=== PATIENT | male | born 1980 | race Caucasian/White ===

== ENCOUNTER 2017-09-29 09:02 | Emergency (ER) | payer OTHER ==
[2017-09-29] MEDS ORDERED: NORMAL SALINE 1000 ML 1,000 ML IV ONE (09:28)
--- NOTE | 2017-09-29 09:29 | ER Document Report ---
ED Medical Screen (RME) - General Chief Complaint: High Blood Sugar Stated Complaint: BLOOD SUGAR CONCERNS Time Seen by Provider: 09/29/17 09:27 Mode of Arrival: Ambulatory Information source: Patient TRAVEL OUTSIDE OF THE [place] IN LAST 30 DAYS: No - HPI Patient complains to provider of: elevated BS Onset: This morning - pt sent from the [place] for evaluation of elevated BS. - Related Data Allergies/Adverse Reactions: No Known Allergies Allergy (Verified 09/29/17 09:04) Past Medical History - Social History Chew tobacco use (# tins/day): No Frequency of alcohol use: None Drug Abuse: None - Past Medical History Cardiac Medical History: Reports: Hx Hypertension Neurological Medical History: Reports: Hx Migraine Endocrine Medical History: Reports: Hx Diabetes Mellitus Type 2 Renal/ Medical History: Denies: Hx Peritoneal Dialysis GI Medical History: Reports: Hx Gastroesophageal Reflux Disease Musculoskeltal Medical History: Reports Hx Musculoskeletal Trauma Psychiatric Medical History: Reports: Hx Post Traumatic Stress Disorder Traumatic Medical History: Reports: Hx Fractures, Hx Traumatic Brain Injury Past Surgical History: Reports: Hx Myringotomy, Hx Nose Surgery - Immunizations Immunizations up to date: Yes Hx Diphtheria, Pertussis, Tetanus Vaccination: Yes Physical Exam - Vital signs Vitals: Temp Pulse Resp BP Pulse Ox 98.4 F 98 18 125/84 96 09/29/17 09:19 09/29/17 09:19 09/29/17 09:19 09/29/17 09:19 09/29/17 09:19 Course - Vital Signs Vital signs: Temp Pulse Resp BP Pulse Ox 98.4 F 98 18 125/84 96 09/29/17 09:19 09/29/17 09:19 09/29/17 09:19 09/29/17 09:19 09/29/17 09:19
[2017-09-29 09:54] LABS: APPEARANCE,URINE CLEAR; BILIRUBIN,URINE NEGATIVE (NEGATIVE); COLOR,URINE YELLOW; GLUCOSE, URINE >=500 mg/dL (NEGATIVE); KETONES,URINE NEGATIVE (NEGATIVE); LEUKOCYTE ESTERASE,URINE NEGATIVE (NEGATIVE); NITRITE,URINE NEGATIVE (NEGATIVE); PROTEIN,URINE NEGATIVE (NEGATIVE); URINE SPECIFIC GRAVITY 1.032
[2017-09-29 09:56] LABS: ABSOLUTE BASOPHILS # (AUTO) 0.1 10^3/uL (0.0-0.2); ABSOLUTE EOSINOPHILS # (AUTO) 0.1 10^3/uL (0.0-0.6); ABSOLUTE LYMPHOCYTES (AUTO) 2.1 10^3/uL (0.5-4.7); ABSOLUTE MONOCYTES (AUTO) 0.5 10^3/uL (0.1-1.4); ABSOLUTE NEUT (AUTO) 3.7 10^3/uL (1.7-8.2); BASOPHILS % (AUTO) 0.8 % (0-2); EOSINOPHILS % (AUTO) 1.6 % (0-6); HEMATOCRIT 42.1 % (37.9-51.0); HEMOGLOBIN 15.2 g/dL (13.5-17.0); LYMPHOCYTES % (AUTO) 32.7 % (13-45); MEAN CORPUSCULAR HEMOGLOBIN 31.4 pg (27.0-33.4); MEAN CORPUSCULAR HGB CONC 36.2 g/dL (32.0-36.0); MEAN CORPUSCULAR VOLUME 87 fl (80-97); MONOCYTES % (AUTO) 7.8 % (3-13); PLATELET COUNT 250 10^3/uL (150-450); RED BLOOD COUNT 4.86 10^6/uL (4.35-5.55); SEGMENTED NEUTROPHILS % (AUTO) 57.1 % (42-78); TOTAL CELLS COUNTED % (AUTO) 100 %; WHITE BLOOD COUNT 6.5 10^3/uL (4.0-10.5)
[2017-09-29 10:19] LABS: ALANINE AMINOTRANSFERASE 82 U/L (21-72); ALBUMIN 4.8 g/dL (3.5-5.0); ALKALINE PHOSPHATASE 43 U/L (38-126); ANION GAP 11 (5-19); ASPARTATE AMINO TRANSFERASE 36 U/L (17-59); BILIRUBIN,DIRECT 0.5 mg/dL (0.0-0.4); BILIRUBIN,TOTAL 1.2 mg/dL (0.2-1.3); BLOOD UREA NITROGEN 18 mg/dL (7-20); CALCIUM 9.7 mg/dL (8.4-10.2); CARBON DIOXIDE 28 mmol/L (22-30); CHLORIDE 98 mmol/L (98-107); GLUCOSE 360 mg/dL (75-110); POTASSIUM 4.5 mmol/L (3.6-5.0); SODIUM 136.6 mmol/L (137-145); TOTAL PROTEIN 7.3 g/dL (6.3-8.2)
--- NOTE | 2017-09-29 12:01 | ER Document Report ---
ED General - General Chief Complaint: High Blood Sugar Stated Complaint: BLOOD SUGAR CONCERNS Time Seen by Provider: 09/29/17 09:27 Mode of Arrival: Ambulatory TRAVEL OUTSIDE OF THE [place] IN LAST 30 DAYS: No - HPI Patient complains to provider of: Elevated blood sugars Notes: Patient coming in elevated blood sugars. Patient also having nausea vomiting diarrhea and slight abdominal pain. Patient states normally his blood sugars are 250. States blood sugar this morning when he woke up with her 400. Went to the [facility] encouraged patient to come to the ER for further evaluation. Upon my evaluation patient resting comfortably no signs of any obvious distress. Patient states no changes in his medications. Patient states improvement of his abdominal pain states still slightly nauseous. Patient states multiple sick contacts throughout his family with similar symptoms. Denies any fevers chills. - Related Data Allergies/Adverse Reactions: No Known Allergies Allergy (Verified 09/29/17 09:04) Past Medical History - General Information source: Patient - Social History Smoking Status: Never Smoker Chew tobacco use (# tins/day): No Frequency of alcohol use: None Drug Abuse: None Family History: Arthritis, CAD, CVA, DM, Hyperlipidemia, Hypertension, Malignancy, Thyroid Disfunction Patient has suicidal ideation: No Patient has homicidal ideation: No - Past Medical History Cardiac Medical History: Reports: Hx Hypertension Neurological Medical History: Reports: Hx Migraine - TBI Endocrine Medical History: Reports: Hx Diabetes Mellitus Type 2 Renal/ Medical History: Denies: Hx Peritoneal Dialysis GI Medical History: Reports: Hx Gastroesophageal Reflux Disease Musculoskeltal Medical History: Reports Hx Musculoskeletal Trauma Psychiatric Medical History: Reports: Hx Post Traumatic Stress Disorder Traumatic Medical History: Reports: Hx Fractures, Hx Traumatic Brain Injury Past Surgical History: Reports: Hx Myringotomy, Hx Nose Surgery - Immunizations Immunizations up to date: Yes Hx Diphtheria, Pertussis, Tetanus Vaccination: Yes Review of Systems - Review of Systems Constitutional: Other - Elevated blood sugars nausea vomiting diarrhea EENT: No symptoms reported Cardiovascular: No symptoms reported Respiratory: No symptoms reported Gastrointestinal: No symptoms reported Genitourinary: No symptoms reported Male Genitourinary: No symptoms reported Musculoskeletal: No symptoms reported Skin: No symptoms reported Hematologic/Lymphatic: No symptoms reported Neurological/Psychological: No symptoms reported Physical Exam - Vital signs Vitals: Temp Pulse Resp BP Pulse Ox 98.4 F 98 18 125/84 96 09/29/17 09:19 09/29/17 09:19 09/29/17 09:19 09/29/17 09:19 09/29/17 09:19 Interpretation: Normal - General General appearance: Appears well, Alert - HEENT Head: Normocephalic, Atraumatic Eyes: Normal Pupils: PERRL - Respiratory Respiratory status: No respiratory distress Chest status: Nontender Breath sounds: Normal Chest palpation: Normal - Cardiovascular Rhythm: Regular Heart sounds: Normal auscultation Murmur: No - Abdominal Inspection: Normal Distension: No distension Bowel sounds: Normal Tenderness: Nontender Organomegaly: No organomegaly - Back Back: Normal, Nontender - Extremities General upper extremity: Normal inspection, Nontender, Normal color, Normal ROM , Normal temperature General lower extremity: Normal inspection, Nontender, Normal color, Normal ROM , Normal temperature, Normal weight bearing. No: Jaycee's sign - Neurological Neuro grossly intact: Yes Cognition: Normal Orientation: AAOx4 [place] Coma Scale Eye Opening: Spontaneous [place] Coma Scale Verbal: Oriented [place] Coma Scale Motor: Obeys Commands [place] Coma Scale Total: 15 Speech: Normal Motor strength normal: LUE, RUE, LLE, RLE Sensory: Normal - Psychological Associated symptoms: Normal affect, Normal mood - Skin Skin Temperature: Warm Skin Moisture: Dry Skin Color: Normal Course - Re-evaluation Re-evalutation: 09/29/17 15:53 Patient was given a liter fluid here A1c was at 7.9 did explain the patient this morning his sugars have been elevated and this time no clear etiology for his blood sugar greater than 400 at home however patient looks to be coming down with the local gastroenteritis that is going to the community. Patient will be given nausea medication patient will be discharged home patient agrees with this plan. - Vital Signs Vital signs: Temp Pulse Resp BP Pulse Ox 98.2 F 97 18 126/78 H 97 09/29/17 12:15 09/29/17 12:15 09/29/17 12:15 09/29/17 12:15 09/29/17 12:15 - Laboratory Result Diagrams: 09/29/17 09:45 09/29/17 09:45 Laboratory results interpreted by me: 09/29/17 09/29/17 09/29/17 09:35 09:40 09:45 MCHC 36.2 H Sodium Glucose POC Glucose 333 H Hemoglobin A1c % Direct Bilirubin ALT Urine Glucose (UA) >=500 H Urine Urobilinogen 4.0 H 09/29/17 09/29/17 09:45 09:45 MCHC Sodium 136.6 L Glucose 360 H POC Glucose Hemoglobin A1c % 7.9 H Direct Bilirubin 0.5 H ALT 82 H Urine Glucose (UA) Urine Urobilinogen Discharge - Discharge Clinical Impression: Elevated blood sugar Diarrhea Qualifiers: Diarrhea type: unspecified type Qualified Code(s): R19.7 - Diarrhea, unspecified Abdominal pain Qualifiers: Abdominal location: unspecified location Qualified Code(s): R10.9 - Unspecified abdominal pain Condition: Good Disposition: HOME, SELF-CARE Instructions: Abdominal Pain ([facility]), Diabetes ([facility]), Diarrhea, Nonspecific ([facility]) Additional Instructions: Take medication as prescribed. More likely have a viral gastroenteritis. Your hemoglobin A1c was elevated at 7.9. Please talked with your primary care physician for further evaluation of your diabetic control. Prescriptions: Dicyclomine HCl [Bentyl 20 mg Tablet] 20 mg PO QID #40 tablet Ondansetron [Zofran Odt] 4 mg PO Q6 PRN #30 tab.rapdis PRN Reason: For Nausea/Vomiting Promethazine HCl [Phenergan 25 mg Tablet] 25 mg PO Q6 #30 tablet Forms: Return to Work
[2017-09-29 12:17] VITALS: BP 126/78
== END 2017-09-29 12:17 | disposition home or self-care (01) ==
LOC: ER 09:02
DX: E11.65 Type 2 diabetes mellitus with hyperglycemia (principal); R19.7 Diarrhea, unspecified; R10.9 Unspecified abdominal pain; R11.2 Nausea with vomiting, unspecified
CPT/HCPCS: 99283; 96360; 36415; 82962; 83690; 85025; 80053; 81001; 83036; J7030

== ENCOUNTER 2018-03-22 07:34 | Emergency (ER) | payer OTHER ==
[2018-03-22 07:38] VITALS: BP 126/89
--- NOTE | 2018-03-22 08:01 | ER Document Report ---
ED General - General Chief Complaint: Ear Pain Stated Complaint: COUGH, THROAT/EYE PAIN Time Seen by Provider: 03/22/18 08:00 TRAVEL OUTSIDE OF THE [place] 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 Patient has not tried any qurr-oog-ijcknax medications. He typically takes Zyrtec has not been taking it for the last week. Non-smoker. Reports nonproductive cough. pain is 4/10, throbbing and constant. Denies fevers, chills, chest pain,palpitations , shortness of breath, dyspnea, nausea, vomiting, diarrhea, abdominal pain, hematuria,blurred vision, double vision, loss of vision, speech changes, LH, dizziness, syncope, headaches, wheezing, ST, URI, neck pain, weakness, bowel or bladder dysfunction, saddle anesthesia, numbness or tingling in bilateral upper or lower extremities equally, muscle paralysis, weakness in bilateral upper or lower extremities equally or rash. Denies IV drug use. - Related Data Allergies/Adverse Reactions: No Known Allergies Allergy (Verified 03/22/18 07:35) Past Medical History - General Information source: Patient - Social History Smoking Status: Never Smoker Family History: Arthritis, CAD, CVA, DM, Hyperlipidemia, Hypertension, Malignancy, Thyroid Disfunction - Past Medical History Cardiac Medical History: Reports: Hx Hypertension Neurological Medical History: Reports: Hx Migraine - TBI Endocrine Medical History: Reports: Hx Diabetes Mellitus Type 2 Renal/ Medical History: Denies: Hx Peritoneal Dialysis GI Medical History: Reports: Hx Gastroesophageal Reflux Disease Musculoskeletal Medical History: Reports Hx Musculoskeletal Trauma Psychiatric Medical History: Reports: Hx Post Traumatic Stress Disorder Traumatic Medical History: Reports: Hx Fractures, Hx Traumatic Brain Injury Past Surgical History: Reports: Hx Myringotomy, Hx Nose Surgery - Immunizations Immunizations up to date: Yes Hx Diphtheria, Pertussis, Tetanus Vaccination: Yes Review of Systems - Review of Systems Constitutional: No symptoms reported EENT: See HPI Cardiovascular: No symptoms reported Respiratory: No symptoms reported Gastrointestinal: No symptoms reported Genitourinary: No symptoms reported Male Genitourinary: No symptoms reported Musculoskeletal: No symptoms reported Skin: No symptoms reported Hematologic/Lymphatic: No symptoms reported Neurological/Psychological: No symptoms reported Physical Exam - Vital signs Vitals: Temp Pulse Resp BP Pulse Ox 98.2 F 90 16 126/89 H 97 03/22/18 07:37 03/22/18 07:37 03/22/18 07:37 03/22/18 07:37 03/22/18 07:37 - Notes Notes: PHYSICAL EXAMINATION: GENERAL: Well-appearing, well-nourished and in no acute distress. HEAD: Atraumatic, normocephalic. EYES: Pupils equal round and reactive to light, extraocular movements intact, sclera anicteric, conjunctiva are normal. ENT: Bilateral TMs bulging with erythema and intact. nares boggy, oropharynx with erythema no exudates moist mucous membranes. NECK: Normal range of motion, supple without lymphadenopathy LUNGS: Breath sounds clear to auscultation bilaterally and equal. No wheezes rales or rhonchi. HEART: Regular rate and rhythm without murmurs ABDOMEN: Soft, nontender, nondistended abdomen. No guarding, no rebound. No masses appreciated. Musculoskeletal: Normal range of motion, no pitting or edema. No cyanosis. NEUROLOGICAL: Cranial nerves grossly intact. Normal speech, normal gait. Normal sensory, motor exams PSYCH: Normal mood, normal affect. SKIN: Warm, Dry, normal turgor, no rashes or lesions noted. Course - Re-evaluation Re-evalutation: 03/22/18 09:21 Presentation is most consistent with a viral upper respiratory infection. Patient is overall well appearance, vitals within normal limits, well-hydrated. Patient denies any headache, neck pain, and has no evidence of meningismus on examination. Lungs are clear bilaterally. No evidence of respiratory distress. Based on clinical exam and history, I do not suspect an acute pneumonia, meningitis, strep pharyngitis, or an acute encephalitis. No laboratory or imaging testing is indicated at this time. Will discharge patient with return precautions and followup recommendations. They are in agreement this plan have verbalized understanding return precautions. After performing a Medical Screening Examination, I estimate there is LOW risk for ACUTE CORONARY SYNDROME, PULMONARY EMBOLI, RESPIRATORY FAILURE, SEPSIS OR MENINGITIS, thus I consider the discharge disposition reasonable. I have reevaluated this patient multiple times and no significant life threatening changes are noted. The patient and I have discussed the diagnosis and risks, and we agree with discharging home with close follow-up. We also discussed returning to the Emergency Department immediately if new or worsening symptoms occur. We have discussed the symptoms which are most concerning (e.g., changing or worsening pain, trouble swallowing or breathing, neck stiffness, fever) that necessitate immediate return. - Vital Signs Vital signs: Temp Pulse Resp BP Pulse Ox 98.2 F 90 16 126/89 H 97 03/22/18 07:37 03/22/18 07:37 03/22/18 07:37 03/22/18 07:37 03/22/18 07:37 - Laboratory Laboratory results interpreted by me: 03/22/18 08:00 POC Glucose 255 H Discharge - Discharge Clinical Impression: Viral URI with cough Condition: Stable Disposition: HOME, SELF-CARE Instructions: Viral Syndrome ([facility]), Upper Respiratory Illness ([facility]) Additional Instructions: Viral Syndrome The physician has diagnosed a viral infection. Viruses not only cause "colds," but can cause many different symptoms including generalized aching, fever, headache, cough, diarrhea, nausea, vomiting, and fatigue. The treatment, for the most part, is simply relief of symptoms. This means that antibiotics are usually not given. Rest, fluids, pain medications and, occasionally, medication for the specific symptoms that are most bothersome will be prescribed. Use good handwashing to avoid passing the virus to others. Shared toys should be cleaned with disinfectant. Clean the toilets, sinks, and counter surfaces in bathrooms. Launder clothing in hot water. Contact the physician if you develop any new or unusual symptoms such as severe headache, stiff neck, high fever, chest pain, productive cough, or shortness of breath. You should be rechecked if you don't see marked improvement within seven to 10 days. Return immediately for any new or worsening symptoms. Your engineering technician parking appt is this you have already scheduled. If you experience any high fevers, shortness of breath, neck stiffness chest pain, rash return to the ED demi. He was taken off her antihistamines for allergy testing which will be done on , once you have finished your allergy testing please resume Zyrtec as directed. Fissure to suck on hard candies or cough drops to help with postnasal drip cough, alternate between ibuprofen and Tylenol for pain and fever control. Follow up with primary care provider, call tomorrow to make followup appointment. Prescriptions: Albuterol Sulfate [Ventolin Hfa] 1 - 2 puff IH Q4 PRN #1 [email or web address] PRN Reason: Benzonatate 100 mg PO TIDP PRN #20 capsule PRN Reason: Forms: Return to Work Referrals: LOVE HAN MD [COMMUNITY BASED STAFF] - Follow up in 3-5 days (prn)
== END 2018-03-22 08:40 | disposition home or self-care (01) ==
LOC: ER 07:34
DX: J06.9 Acute upper respiratory infection, unspecified (principal); H92.09 Otalgia, unspecified ear; I10 Essential (primary) hypertension; E11.9 Type 2 diabetes mellitus without complications
CPT/HCPCS: 82962; 99283

== ENCOUNTER 2018-04-26 08:10 | Emergency (ER) | payer OTHER ==
[2018-04-26 09:23] LABS: ABSOLUTE BASOPHILS # (AUTO) 0.1 10^3/uL (0.0-0.2); ABSOLUTE EOSINOPHILS # (AUTO) 0.1 10^3/uL (0.0-0.6); ABSOLUTE LYMPHOCYTES (AUTO) 2.3 10^3/uL (0.5-4.7); ABSOLUTE MONOCYTES (AUTO) 0.5 10^3/uL (0.1-1.4); ABSOLUTE NEUT (AUTO) 2.5 10^3/uL (1.7-8.2); EOSINOPHILS % (AUTO) 2.5 % (0-6); HEMATOCRIT 41.9 % (37.9-51.0); HEMOGLOBIN 15.2 g/dL (13.5-17.0); LYMPHOCYTES % (AUTO) 41.9 % (13-45); MEAN CORPUSCULAR HGB CONC 36.3 g/dL (32.0-36.0); MEAN CORPUSCULAR VOLUME 86 fl (80-97); MONOCYTES % (AUTO) 8.6 % (3-13); PLATELET COUNT 230 10^3/uL (150-450); RED CELL DISTRIBUTION WIDTH 12.4 % (11.5-14.0); TOTAL CELLS COUNTED % (AUTO) 100 %; WHITE BLOOD COUNT 5.5 10^3/uL (4.0-10.5)
[2018-04-26] MEDS ORDERED: ONDANSETRON 4 MG TAB.RAPDIS PO ONE (09:23)
[2018-04-26] MEDS ORDERED: FENTANYL CITRATE INJ/PF 100 MCG/2 ML AMPUL IV ONE (09:24)
--- NOTE | 2018-04-26 09:25 | ER Document Report ---
ED Medical Screen (RME) - General Chief Complaint: Diarrhea Stated Complaint: VOMITING/DIHARREA Time Seen by Provider: 04/26/18 09:23 Notes: RAPID MEDICAL EVALUATION DISCLOSURE I have seen this patient as part of a Rapid Medical Evaluation and, if applicable, placed any initially appropriate orders. The patient will be seen and fully evaluated, including a full history and physical exam, by a provider ( in Main ED or Fast Track) when a room becomes available. 37-year-old male PMH diverticulitis here with complaints of diarrhea that started approximately 5 days ago, left lower quadrant abdominal pain ( intermittent) that started 3 days ago, and vomiting that started this morning. Pain is worse with defecation but not anything else in particular. He has not tried any medication for the symptoms. He does have a previous history of diverticulitis but denies previous history of pancreatitis colitis. No recent antibiotic use, camping, or foreign travel. EXAM Moist mucous membranes Mild left lower quadrant TTP No peritoneal signs TRAVEL OUTSIDE OF THE [place] IN LAST 30 DAYS: No - Related Data Allergies/Adverse Reactions: No Known Allergies Allergy (Verified 04/26/18 08:11) Past Medical History - Past Medical History Cardiac Medical History: Reports: Hx Hypertension Neurological Medical History: Reports: Hx Migraine - TBI Endocrine Medical History: Reports: Hx Diabetes Mellitus Type 2 Renal/ Medical History: Denies: Hx Peritoneal Dialysis GI Medical History: Reports: Hx Gastroesophageal Reflux Disease Musculoskeltal Medical History: Reports Hx Musculoskeletal Trauma Psychiatric Medical History: Reports: Hx Post Traumatic Stress Disorder Traumatic Medical History: Reports: Hx Fractures, Hx Traumatic Brain Injury Past Surgical History: Reports: Hx Myringotomy, Hx Nose Surgery - Immunizations Immunizations up to date: Yes Hx Diphtheria, Pertussis, Tetanus Vaccination: Yes Physical Exam - Vital signs Vitals: Temp Pulse Resp BP Pulse Ox 97.8 F 89 16 136/83 H 97 04/26/18 08:13 04/26/18 08:13 04/26/18 08:13 04/26/18 08:13 08/28/18 08:13 Course - Vital Signs Vital signs: Temp Pulse Resp BP Pulse Ox 97.8 F 89 16 136/83 H 97 04/26/18 08:13 04/26/18 08:13 04/26/18 08:13 04/26/18 08:13 04/26/18 08:13 - Laboratory Result Diagrams: 04/26/18 09:12 04/26/18 09:12 Laboratory results interpreted by me: 04/26/18 09:12 [facility] H Doctor's Discharge - Discharge Referrals: PRECIOUS FLORES MD [Primary Care Provider] - Follow up as needed
[2018-04-26 09:49] LABS: ALANINE AMINOTRANSFERASE 138 U/L (21-72); ALBUMIN 4.5 g/dL (3.5-5.0); ALKALINE PHOSPHATASE 46 U/L (38-126); ANION GAP 16 (5-19); ASPARTATE AMINO TRANSFERASE 77 U/L (17-59); BILIRUBIN,DIRECT 0.4 mg/dL (0.0-0.4); BILIRUBIN,TOTAL 0.8 mg/dL (0.2-1.3); BLOOD UREA NITROGEN 10 mg/dL (7-20); CALCIUM 9.4 mg/dL (8.4-10.2); CARBON DIOXIDE 24 mmol/L (22-30); CHLORIDE 97 mmol/L (98-107); GLUCOSE 355 mg/dL (75-110); POTASSIUM 4.5 mmol/L (3.6-5.0); SODIUM 136.5 mmol/L (137-145); TOTAL PROTEIN 7.1 g/dL (6.3-8.2)
[2018-04-26 11:01] LABS: APPEARANCE,URINE CLEAR; BILIRUBIN,URINE NEGATIVE (NEGATIVE); COLOR,URINE STRAW; GLUCOSE, URINE >=500 mg/dL (NEGATIVE); KETONES,URINE TRACE mg/dL (NEGATIVE); LEUKOCYTE ESTERASE,URINE NEGATIVE (NEGATIVE); NITRITE,URINE NEGATIVE (NEGATIVE); PROTEIN,URINE NEGATIVE (NEGATIVE); URINE SPECIFIC GRAVITY 1.037; UROBILINOGEN,URINE NEGATIVE mg/dL (<2.0)
--- NOTE | 2018-04-26 11:03 | RADIOLOGY REPORT (SQ) ---
EXAM DESCRIPTION: CT ABD/PELVIS WITH IV ONLY COMPLETED DATE/TIME: 04/26/2018 10:51 am REASON FOR STUDY: LLQ pain n/v/d, hx diverticulitis COMPARISON: None. TECHNIQUE: CT scan of the abdomen and pelvis performed using helical scanning technique with dynamic intravenous contrast injection. No oral contrast. Images reviewed with lung, soft tissue, and bone windows. Reconstructed coronal and sagittal MPR images reviewed. Delayed images for evaluation of the urinary system also acquired. All images stored on PACS. All CT scanners at this facility use dose modulation, iterative reconstruction, and/or weight based d osing when appropriate to reduce radiation dose to as low as reasonably achievable (ALARA). [facility]: Dose Right [facility]: CareDose [facility]: Dose Right [facility]: Teradose 4D [facility]: [employer] CONTRAST TYPE AND DOSE: contrast/concentration: Isovue 350.00 mg/ml; Total Contrast Delivered: 88.0 ml; Total Saline Delivered: 69.0 ml RENAL FUNCTION: GFR > 60. RADIATION DOSE: CT Rad equipment meets quality standard of care and radiation dose reduction techniq ues were employed. CTDIvol: 6.8 - 9.5 mGy. DLP: 1000 mGy-cm.. LIMITATIONS: None. FINDINGS: LOWER CHEST: No significant findings. No nodules or infiltrates. LIVER: Normal size. No masses. No dilated ducts. SPLEEN: Normal size. No focal lesions. PANCREAS: No masses. No significant calcifications. No adjacent inflammation or peripancreatic fluid collections. Pancreatic duct not dilated. GALLBLADDER: No identified stones by CT criteria. No inflammatory changes to suggest cholecystitis. ADRENAL GLANDS: No significant masses or asymmetry. RIGHT KIDNEY AND URETER: No solid masses. No significant calcifications. No hydronephrosis or hyd roureter. LEFT KIDNEY AND URETER: No solid masses. No significant calcifications. No hydronephrosis or hydr oureter. AORTA AND VESSELS: No aneurysm. No dissection. Renal arteries, SMA, celiac without stenosis. RETROPERITONEUM: No retroperitoneal adenopathy, hemorrhage or masses. BOWEL AND PERITONEAL CAVITY: No masses or inflammatory changes. No free fluid or peritoneal masses. APPENDIX: Normal. PELVIS: No mass. No free fluid. Normal bladder. ABDOMINAL WALL: No masses. No hernias. BONES: No significant or acute findings. OTHER: No other significant finding. IMPRESSION: NO SIGNIFICANT OR ACUTE FINDING IN THE ABDOMEN OR PELVIS ON CT SCAN WITH IV CONTRAST. TECHNICAL DOCUMENTATION: JOB ID: [id number] Quality ID # [id number]: Final reports with documentation of one or more dose reduction techniques (e.g., Au tomated exposure control, adjustment of the mA and/or kV according to patient size, use of iterative reconstruction technique) 2010 [employer]- All Rights Reserved Reading location - IP/workstation name: [email or web address]
[2018-04-26] MEDS ORDERED: PROMETHAZINE HCL 25 MG TABLET PO ONE (11:30)
--- NOTE | 2018-04-26 11:41 | ER Document Report ---
ED General - General Chief Complaint: Diarrhea Stated Complaint: VOMITING/DIHARREA Time Seen by Provider: 04/26/18 09:23 Notes: Patient is being evaluated for vomiting and diarrhea. He says he started with the diarrhea Wednesday evening. Also had some headache then. Little bit of vomiting. They lasted for a couple of days and then got a little better for a couple of days and now has returned this morning. He is a patient at the [facility]. He is on Fioricet for migraine headaches. Does not have anything for nausea or vomiting. Has had similar symptoms in the past. Has had similar headaches in the past. Has not had a fever, but has felt hot and cold and had some sweats. Patient is an insulin-dependent diabetic. Also hypertension. Does not smoke and does not drink alcohol. TRAVEL OUTSIDE OF THE [place] IN LAST 30 DAYS: No - Related Data Allergies/Adverse Reactions: No Known Allergies Allergy (Verified 04/26/18 08:11) Past Medical History - Social History Smoking Status: Current Every Day Smoker Frequency of alcohol use: None Drug Abuse: None Family History: Arthritis, CAD, CVA, DM, Hyperlipidemia, Hypertension, Malignancy, Thyroid Disfunction Patient has suicidal ideation: No Patient has homicidal ideation: No - Past Medical History Cardiac Medical History: Reports: Hx Hypertension Neurological Medical History: Reports: Hx Migraine - TBI Endocrine Medical History: Reports: Hx Diabetes Mellitus Type 1, Hx Diabetes Mellitus Type 2 GI Medical History: Reports: Hx Gastroesophageal Reflux Disease Musculoskeletal Medical History: Reports Hx Musculoskeletal Trauma Psychiatric Medical History: Reports: Hx Post Traumatic Stress Disorder Traumatic Medical History: Reports: Hx Fractures, Hx Traumatic Brain Injury Past Surgical History: Reports: Hx Myringotomy, Hx Nose Surgery - Immunizations Immunizations up to date: Yes Hx Diphtheria, Pertussis, Tetanus Vaccination: Yes Review of Systems - Review of Systems Notes: REVIEW OF SYSTEMS: CONSTITUTIONAL : Denies fever. But has felt hot and cold with sweats. EENT: Denies eye, ear, nose or mouth or throat pain or other symptoms. CARDIOVASCULAR: Denies chest pain. RESPIRATORY: Denies cough, chest congestion, or shortness of breath. GASTROINTESTINAL: See HPI. GENITOURINARY: Denies difficulty or painful urinating, urinary frequency, blood in urine. MUSCULOSKELETAL: Denies back or neck pain. Denies joint pain or swelling. SKIN: Denies rash or skin lesions. NEUROLOGICAL: Denies LOC or altered mental status. See HPI regarding headache. Denies sensory loss or motor deficits. ALL OTHER SYSTEMS REVIEWED AND NEGATIVE. Physical Exam - Vital signs Vitals: Temp Pulse Resp BP Pulse Ox 97.8 F 89 16 136/83 H 97 04/26/18 08:13 04/26/18 08:13 04/26/18 08:13 04/26/18 08:13 04/26/18 08:13 Interpretation: Normal - Notes Notes: PHYSICAL EXAMINATION: Vital signs are all normal. GENERAL: Well-appearing, in no acute distress. HEAD: Atraumatic, normocephalic. EYES: Pupils equal round and reactive to light, extraocular movements intact. ENT: oropharynx clear without exudates. Moist mucous membranes. NECK: Normal range of motion, supple. LUNGS: Breath sounds clear and equal bilaterally. HEART: Regular rate and rhythm without murmurs. ABDOMEN: Soft, nontender. No guarding or rebound. No masses. BACK: No tenderness throughout entire back. EXTREMITIES: Normal range of motion without pain. NEUROLOGICAL: Normal speech, normal gait. Normal sensory, motor, and reflex exams. Awake, alert, and oriented x3. Cranial nerves normal. PSYCH: Normal mood, normal affect. SKIN: Warm, dry, no rashes. Course - Vital Signs Vital signs: Temp Pulse Resp BP Pulse Ox 97.8 F 89 16 136/83 H 97 04/26/18 08:13 04/26/18 08:13 04/26/18 08:13 04/26/18 08:13 04/26/18 08:13 - Laboratory Result Diagrams: 04/26/18 09:12 04/26/18 09:12 Laboratory results interpreted by me: 04/26/18 04/26/18 04/26/18 09:12 09:12 10:10 MCHC 36.3 H Sodium 136.5 L Chloride 97 L Glucose 355 H AST 77 H ALT 138 H Urine Glucose (UA) >=500 H Urine Ketones TRACE H 04/26/18 11:54 Hyperglycemia noted. Slight elevation of LFTs pointed out to the patient is likely of no clinical significance. Same for his slightly low sodium and chloride. - Diagnostic Test Radiology reviewed: Image reviewed, Reports reviewed - CT scan of the abdomen and pelvis are normal. Discharge - Discharge Clinical Impression: Vomiting and diarrhea, Headache, IDDM (insulin dependent diabetes mellitus) Condition: Stable Additional Instructions: VOMITING: Vomiting (or nausea without vomiting) can be caused by many other different problems. It can mean that something's wrong with the stomach, such as ulcers or inflammation or the intestinal tract, such as appendicitis. But it can also be a symptom of a problem that has nothing to do with the stomach or intestines. Vomiting is common with severe headaches, earaches, tonsillitis, and kidney infections, etc. We see it with pneumonia or heart attacks. Drugs can cause nausea and vomiting. Many abdominal problems cause vomiting; for example, gallstones, kidney stones, pancreatitis, and intestinal obstruction ( blocked bowels). In most cases, curing the vomiting depends on fixing the problem that caused it. For temporary relief, we may use an anti-nausea medicine. For home use, we can prescribe suppositories, chewable pills, pills that dissolve in the mouth, or liquid anti-nausea drugs. If the vomiting seems to be caused by a problem in the stomach, acid-suppressing drugs may be prescribed as well. It's important to avoid dehydration. Sip small amounts of clear liquids ( soft drinks, tea, broth, etc) . Try to take fluids frequently even if you are vomiting to prevent dehydration. Take increasing amounts of fluid and when liquids are being consumed successfully, advance to small amounts of bland food (toast, soups, mashed potatoes, etc.) until you are able to resume a regular diet. Avoid aspirin, tobacco, and alcohol. If the vomiting worsens, if the problem that's making you vomit worsens, or if there's evidence of bleeding in the stomach (such as black, tarry stool, or bloody or black vomit), you should return immediately. Also, return if abdominal pain worsens or becomes localized to one area or you develop high fever. Call your doctor if you aren't improved in 24 hours. DIARRHEA, NON-SPECIFIC: Diarrhea means frequent, watery stools. There are many causes. Any problem that keeps the intestinal tract from absorbing water from the stool can lead to diarrhea. A sudden new diarrhea problem is usually caused by a virus, food sensitivity, toxic bacteria, or drugs. In this case, we expect the problem to go away soon. Testing is done only if you seem seriously ill from the diarrhea. If you have chronic diarrhea, or diarrhea that keeps coming back, we need to find out why. Chronic diarrhea can be due to inflammation of the bowels such as Crohn's disease or ulcerative colitis, food sensitivity such as intolerance to lactose or wheat protein, irritable bowel syndrome, and other problems. If your diarrhea is a significant problem but it's not clear why you have it, we' ll refer you to a specialist for further testing. During an episode of diarrhea, drink small amounts (two to six ounces) of clear liquids (soft drinks, sport drinks, herb teas, broth, etc). Take fluids frequently to prevent dehydration. It's usually not a problem to take mild anti- diarrhea medication such as Kaopectate or Pepto-Bismol. As the diarrhea eases, advance to small amounts of bland food (mashed potato, toast) for 24 hours. Call the physician if blood appears in your vomit or stool, if vomiting lasts longer than 24 hours, if the abdominal pain worsens or becomes localized to one area, if you develop high fever, or if you become lightheaded and weak. VIRAL SYNDROME: The physician has diagnosed a viral infection. Viruses not only cause "colds," but can cause many different symptoms including generalized aching, fever, headache, cough, diarrhea, nausea, vomiting, and fatigue. The treatment, for the most part, is simply relief of symptoms. This means that antibiotics are usually not given. Rest, fluids, pain medications and, occasionally, medication for the specific symptoms that are most bothersome will be prescribed. Use good handwashing to avoid passing the virus to others. Shared toys should be cleaned with disinfectant. Clean the toilets, sinks, and counter surfaces in bathrooms. Launder clothing in hot water. Contact the physician if you develop any new or unusual symptoms such as severe headache, stiff neck, high fever, chest pain, productive cough, or shortness of breath. You should be rechecked if you don't see marked improvement within seven to 10 days. ANTINAUSEA MEDICATION: You have been given a medication to suppress nausea and vomiting. This type of medication can be given as a shot, pill, or suppository. It will usually last for many hours. Pills and shots usually last six to eight hours. For the typical illness, only one or two doses of the medication may be necessary. Mild lightheadedness may occur. This type of medicine can cause drowsiness. Do not drive or operate dangerous machinery while under its influence. Do not mix with alcohol. See your doctor at once if you have muscle spasms or tightness, or uncontrollable motions (particularly of the neck, mouth, or jaw). Persistent vomiting or severe lightheadedness should also be evaluated by the physician. HEADACHE: The physician does not feel that the headache you are experiencing has a serious underlying cause. Most headaches are due to emotional stress, with resultant muscle tension (tension headache). Occasionally, headaches are secondary to changes in the blood vessels of the scalp (vascular headache and migraine headache). Sometimes, a headache is the first symptom of another developing illness, such as a viral infection. You have no evidence of stroke, bleeding, meningitis, or other serious cause of your headache. The treatment of headaches varies with the severity and cause of the pain. Not all headaches need pain shots. In fact, there is evidence that using narcotics for headaches may make them worse in the long run. The physician will determine the therapy that's in your best interest. If you develop a fever, if the headache is different from any you've previously experienced, or if the headache progressively worsens, then call your physician at once or go to the emergency room. ANTINAUSEA MEDICATION: You have been given a medication to suppress nausea and vomiting. This type of medication can be given as a shot, pill, or suppository. It will usually last for many hours. Pills and shots usually last six to eight hours, suppositories last about 12 hours. For the typical illness, only one or two doses of the medication may be necessary. Mild lightheadedness may occur. This type of medicine can cause drowsiness. Do not drive or operate dangerous machinery while under its influence. Do not mix with alcohol. See your doctor at once if you have muscle spasms or tightness, or uncontrollable motions (particularly of the neck, mouth, or jaw). Persistent vomiting or severe lightheadedness should also be evaluated by the physician. Hyperglycemia (High Blood Sugar) You have an abnormally high blood sugar. Not all high blood sugar requires long-term treatment. High blood sugar can be due to medications, , or the stress of illness. (These cases are "borderline diabetes.") If the doctor feels your high blood sugar might resolve with time, you may not require treatment now. You will be scheduled for further evaluation. It's very important that you follow through, to see if the blood sugar returns to normal levels. Uncontrolled high blood sugar leads to early heart disease, strokes, nerve damage, eye damage, and kidney damage. Call the physician if there is faintness, excess sleepiness, or very rapid breathing. FOLLOW-UP CARE: If you have been referred to a physician for follow-up care, call the physician s office for an appointment as you were instructed or within the next two days. If you experience worsening or a significant change in your symptoms, notify the physician immediately or return to the Emergency Department at any time for re-evaluation. Prescriptions: Promethazine HCl [Phenergan 25 mg Tablet] 1 - 2 tab PO Q6H PRN #20 tablet PRN Reason: Forms: Return to Work Referrals: PRECIOUS FLORES MD [Primary Care Provider] - Follow up as needed
[2018-04-26 12:15] VITALS: BP 105/67
== END 2018-04-26 12:10 | disposition home or self-care (01) ==
LOC: ER 08:10
DX: R11.10 Vomiting, unspecified (principal); G43.909 Migraine, unspecified, not intractable, without status migrainosus; Z79.899 Other long term (current) drug therapy; R19.7 Diarrhea, unspecified; I10 Essential (primary) hypertension; E11.65 Type 2 diabetes mellitus with hyperglycemia; Z79.4 Long term (current) use of insulin; R79.89 Other specified abnormal findings of blood chemistry
CPT/HCPCS: 99284; 96374; 36415; 83690; 85025; 80053; 81001; 74177; S0119; J3010